=== PATIENT | female | born 1995 | race Caucasian/White ===

== ENCOUNTER 2020-10-18 12:31 | Emergency (ER) | payer OTHER | END 2020-10-18 14:04 | disposition home or self-care (01) | LOC: JVIRT 12:31 | DX: Z11.59 Encounter for screening for other viral diseases (principal) | CPT/HCPCS: Q3014-GT ==

== ENCOUNTER 2020-10-26 12:41 | Emergency (ER) | payer OTHER | END 2020-10-26 16:26 | disposition home or self-care (01) | LOC: JVIRT 12:41 | DX: U07.1 COVID-19 (principal) | CPT/HCPCS: C9803; G2012-GT; Q3014-GT; U0003 ==